=== PATIENT | male | born 1940 | race Two or more races ===

== ENCOUNTER 2017-03-13 11:32 | Inpatient (IN) | payer OTHER ==
[~2017-03-13] VITALS: Ht 172.7 cm; Wt 61.2 kg
[~2017-03-13 11:32] MED LIST: ATENOLOL25 MG PO; ECOTRIN325 M1 PO; EFFEXOR XR75 MG PO; IRON1TAB4 PO; LISINOPRIL2.5 MG PO; METFORMIN HYDRO25 GM PO; SINEMET 25-1001 EACH PO
[2017-03-18] MEDS ORDERED: CIPRO500 MG PO (12:49)
[2017-03-18] MEDS ORDERED: ERYTHROMYCIN OPH1 GM OP (12:49)
== END 2017-03-18 14:42 | disposition home or self-care (01) | DRG 872 ==
LOC: ER 11:32 → MEDJ 03-14 12:20
PROC: BT43ZZZ Ultrasonography of Bilateral Kidneys (ICD-10-PCS; principal; 2017-03-14)
DX: A41.9 Sepsis, unspecified organism (principal); N39.0 Urinary tract infection, site not specified; N17.8 Other acute kidney failure; B96.4 Proteus (mirabilis) (morganii) as the cause of diseases classified elsewhere; E86.0 Dehydration; G20 Parkinson's disease; I10 Essential (primary) hypertension; E11.65 Type 2 diabetes mellitus with hyperglycemia; Z74.01 Bed confinement status; H10.33 Unspecified acute conjunctivitis, bilateral; Z86.73 Personal history of transient ischemic attack (TIA), and cerebral infarction without residual deficits